=== PATIENT | female | born 1945 | race Caucasian/White ===

== ENCOUNTER 2020-12-19 09:48 | Emergency (ER) | payer MEDICARE, OTHER ==
[~2020-12-19] VITALS: Ht 167.6 cm; Wt 102.3 kg
[2020-12-19 09:55] VITALS: BP 137/77
--- NOTE | 2020-12-19 10:21 | PHYS DOC ---
Past History Past Medical History: Asthma, GERD, High Cholesterol, Other Additional Past Medical Histor: GOUT Past Surgical History: Cholecystectomy, , Other Additional Past Surgical Histo: CARPAL TUNNEL, LOWER BACK Alcohol Use: None Adult General Chief Complaint Chief Complaint: BURN/SMOKE INHALATION [facility] HPI Patient is a 75-year-old female who presents for burn to left hand. Onset was this 30 minutes prior to arrival. Patient had used a hot waffle iron to cook waffles for the family. She thought said heating element was off and cool when she grabbed it with her palmar surface of left hand but it was still hot. She immediately withdrew from pain, ran left hand under cold water for approximately 5 minutes and then has iced it ever since and route to our ER for evaluation. On arrival, she reports pain to left hand only without radiation. She has never suffered a burn like this before. She has no pertinent medical issues related to burn visit today. She is up-to-date on tetanus Review of Systems Review of Systems Fourteen body systems of review of systems have been reviewed. See HPI for pertinent positives and negative responses, other mahoney all other systems are negative, non-pertinent or non-contributory Allergies Allergies Allergies Coded Allergies Type Severity Reaction Last Updated Verified buspirone Allergy Unknown 12/19/20 Yes milk Allergy Unknown 12/19/20 Yes Uncoded Allergies Type Severity Reaction Last Updated Verified flu shots Allergy Unknown 12/19/20 Physical Exam Physical Exam Constitutional: Well developed, well nourished, no acute distress, non-toxic appearance. HENT: Normocephalic, atraumatic, bilateral external ears normal, oropharynx moist, no oral exudates, nose normal. Eyes: PERRLA, EOMI, conjunctiva normal, no discharge. Neck: Normal range of motion, no tenderness, supple, no stridor. Cardiovascular: Heart rate regular per monitor Lungs & Thorax: No respiratory distress or accessory muscle use, bilateral chest rise Abdomen: Abdomen soft, non-tender, bowel sounds present in all quadrants, no guarding or rebound, nonacute abdomen. Skin: Warm, dry, no rash. Superficial, first-degree burn noted to epidermis of palmar surface of left hand. Most prominent points of burn include distal pad of the middle finger and ring finger. There is intact cap refill less than 3 seconds of all digits. Minimal blisters present on tip of left middle finger only. Radial pulse intact to left upper extremity Back: No tenderness, no CVA tenderness. Extremities: No tenderness, no cyanosis, no clubbing, ROM intact, no edema. Neurologic: Alert and oriented X 3, grossly normal motor & sensory function, no focal deficits noted. Psychologic: Affect normal, judgement normal, mood normal. Current Patient Data Vital Signs Vital Signs Date Time Temp Pulse Resp B/P (MAP) Pulse Ox O2 Delivery O2 Flow Rate FiO2 12/19/20 09:55 96.6 61 20 137/77 (97) 96 Room Air EKG EKG [] Radiology/Procedures Radiology/Procedures [] Heart Score C/O Chest Pain: No HEART Score for Chest Pain: HEART Score for Chest Pain Response (Comments) Value History Slighlty/Non-Suspicious 0 Age > 65 2 Risk Factors >3 Risk Factors or Hx CAD 2 Total 4 Risk Factors: Risk Factors: DM, Current or recent (<one month) smoker, HTN, HLP, family history of CAD, obesity. Risk Scores: Risk Factors: DM, Current or recent (<one month) smoker, HTN, HLP, family history of CAD, obesity. Course & Med Decision Making Course & Med Decision Making Hemodynamically stable patient with up-to-date tetanus with HPI and physical examination consistent with first-degree burn of left hand after grabbing waffle iron No indication for advanced/invasive work-up or intervention while in ER. Supportive care advised Educated patient and on pathology and likely disease course. I discussed role of topical antimicrobial ointment and/or Vaseline-based ointment. Discussed no indication for p.o. antibiotics, popping blisters or tetanus vaccine at present Strict return precautions discussed with good understanding by patient and spouse, all questions and concerns addressed prior to departure Dragon Disclaimer Dragon Disclaimer This electronic medical record was generated, in whole or in part, using a voice recognition dictation system. Departure Departure: Impression: Primary Impression: Burn of hand, left, first degree Disposition: HOME / SELF CARE / HOMELESS Condition: GOOD Referrals: GUERO SHEA MD (PCP) Patient Instructions: Burn Care Additional Instructions: As discussed, you were diagnosed with a first-degree burn to your left hand. There is no need for tetanus vaccine update or by mouth antibiotics. With that said, you need to continue providing self-care at home with good fluid intake by mouth, utilizing Tylenol and/or ibuprofen as needed for pain, you can apply a topical antimicrobial ointment such as bacitracin or mupirocin as needed but I would not recommend doing this for more than 3 days in duration. After that timeframe, I would switch to using a petroleum jelly based ointment such as Vaseline or Aquaphor. Please leave blisters intact, there is no indication to pop any at present. I would contact your primary care physician immediately after ER departure to review visit today and discuss need for repeat evaluation in outpatient setting. Any concerning signs or symptoms present prior to outpatient follow-up please do not hesitate to come back for repeat evaluation. It was a pleasure to take care of you and I wish you a speedy recovery TRISTA BETANCOURT DO Dec 19, 2020 10:21
== END 2020-12-19 10:25 | disposition home or self-care (01) ==
LOC: ER 09:48
DX: T23.102A Burn of first degree of left hand, unspecified site, initial encounter (principal); E78.00 Pure hypercholesterolemia, unspecified; K21.9 Gastro-esophageal reflux disease without esophagitis; J45.909 Unspecified asthma, uncomplicated; M10.9 Gout, unspecified; Z88.8 Allergy status to other drugs, medicaments and biological substances; Z91.011 Allergy to milk products; X16.XXXA Contact with hot heating appliances, radiators and pipes, initial encounter; Y93.G3 Activity, cooking and baking; Y92.89 Other specified places as the place of occurrence of the external cause; Y99.8 Other external cause status
CPT/HCPCS: 99282; 99283